=== PATIENT | male | born 1945 | race Caucasian/White ===

== ENCOUNTER → 2016-07-25 | Outpatient (CLI) | payer MEDICARE, OTHER ==
--- NOTE | 2016-07-25 07:47 | CT ---
EXAMINATION TYPE: CT sinus wo con DATE OF EXAM: 07/25/2016 7:37 AM COMPARISON: NONE HISTORY: Chronic sinusitis CT DLP: [address] of the paranasal sinuses was performed in the axial and coronal planes. Bone and soft tissue settings are submitted. The paranasal sinuses demonstrate normal aeration and development. There is mucosal thickening of the maxillary sinuses and superior anterior ethmoid air cells as well as minimally within the frontal sinus and sphenoid sinus. The osteal meatal units are obstructed on the right. Left ostiomeatal unit is patent. The nasal septum is midline. No bony destructive changes are seen within the field of view. IMPRESSION: Changes of chronic pansinusitis with obstruction of the right ostiomeatal unit.
== END | disposition home or self-care (01) ==
LOC: RADCTMAIN 07:11
PROVIDERS: ATTEND Otolaryngology
DX: J32.4 Chronic pansinusitis (principal); J98.8 Other specified respiratory disorders
CPT/HCPCS: 70486

== ENCOUNTER 2016-09-12 08:29 | Day surgery (SDC) | payer MEDICARE, OTHER ==
[2016-09-10 12:16] VITALS: BMI 25.1
[~2016-09-12 08:29] MED LIST: DEXAMETHASONE SOD PHOSPHATE 10 MG/ML 1 ML VIAL IV ONE; HYDROmorphone 1 MG/ML 1 ML SYRINGE IVP PRN; LACTATED RINGERS 1,000 ML IV SCH; ONDANSETRON 4 MG/2 ML VIAL IVP ONE; OXYMETAZOLINE 0.05% NASL SPRAY 15 ML ONE; Pre Op ABX Message 1 EACH MISC MISCELLANE ONE
[2016-09-12] MEDS ORDERED: OXYMETAZOLINE 0.05% NASL SPRAY 15 ML NASAL ONE ×4 (09:08→09:18)
[2016-09-12 09:22] VITALS: RESP 16
[2016-09-12] MEDS ORDERED: fentaNYL (PF) 50 MCG/ML 2 ML AMP ONE (10:12)
[2016-09-12] MEDS ORDERED: DEXAMETHASONE SOD PHOS (MDV) 100 MG/10 ML VIAL ONE (10:12)
[2016-09-12] MEDS ORDERED: LIDOCAINE 1% INJ 10MG/ML (20 ML MDV) ONE (10:12)
[2016-09-12] MEDS ORDERED: ePHEDrine 50 MG/ML 1 ML AMP ONE (10:12)
[2016-09-12] MEDS ORDERED: PROPOFOL 10 MG/ML 20 ML VIAL IV ONE (10:12)
[2016-09-12] MEDS ORDERED: SUCCINYLCHOLINE CHLORIDE VIAL 200 MG/10 ML VIAL IV ONE (10:12)
[2016-09-12] MEDS ORDERED: MIDAZOLAM 2 MG/2 ML VIAL ONE (10:12)
[2016-09-12] MEDS ORDERED: BACITRACIN 500 UNIT/GM OINT 28.4 GM TUBE TOPICAL ONE (10:34)
[2016-09-12] MEDS ORDERED: LIDOCAINE 1%-EPI 1:100,000 20 ML VIAL SQ ONE ×2 (10:34)
--- NOTE | 2016-09-12 11:14 | P.OP ---
Date of Procedure: 09/12/16 Preoperative Diagnosis: Deviated nasal septum Chronic sinusitis Postoperative Diagnosis: Same Procedure(s) Performed: Septoplasty Bilateral endoscopic sinus surgery including bilateral maxillary antrostomy bilateral anterior ethmoidectomy and balloon sinus plasty of the frontal and sphenoid sinuses Implants: Anesthesia: LEDYA Surgeon: Sebas Simms Estimated Blood Loss (ml): 20 Pathology: other Condition: stable Disposition: PACU Indications for Procedure: This 71-year-old white female who has difficulties with chronic nasal airway obstruction and postnasal drainage and recurrent sinusitis. Computed tomography scan shows evidence of chronic inflammation Operative Findings: Septum is deviated to the left, chronic inflammation in the maxillary and ethmoid sinuses with only minimal inflammation in the sphenoid and frontal sinuses. Description of Procedure: The patient was brought in the operative suite and placed in a supine position. The patient underwent induction of general anesthesia with oral endotracheal intubation without difficulty. The patient was prepped and draped in usual aseptic fashion with the orbits in the operating field for monitoring throughout the case and the computed tomography scan on the computer screen for review throughout the case also. 1% lidocaine with 1 100,000 epinephrine was infused submucosally both sides nasal septum as well as lateral nasal wall and anterior tips the middle turbinates bilaterally. This was left to work for 7 minutes vasoconstrictive effect. A left hemitransfixion incision was made with the mucoperichondrial mucoperiosteal flap on the left elevated. Bony cartilaginous junction was disarticulated and mucoperiosteal flap on the right was elevated. Note that there was some scarring anteriorly the septum where there was previous septoplasty. Residual bony deformity towards the left was removed with Jonatan forceps area in this corrected the nasoseptal deformities and the hemitransfixion incision was closed with a running 4-0 chromic. Full 0 to endoscopic examination is performed bilaterally. Beginning on the left the middle turbinate was medialized with a Caldwell elevator. Infundibulotomy was then performed followed by uncinectomy. Maxillary ostium was located with a ballpoint probe and max ostium was enlarged at the expense of the anterior posterior fontanelle taking care anteriorly not to injure the lacrimal bone. Maxillary sinus was evaluated a 30 and 70 endoscope with mild mucosal thickening noted. Anterior ethmoidectomy was then performed with microdebrider. Entellus light guided system was then used to perform excised sinuses explored. There was some minimal tissue removed from the ostium at both sites also. Once this was completed attention was turned to the right where the procedures were followed as they were on the left including medialization middle turbinate infundibulotomy uncinectomy maxillary antrostomy anterior ethmoidectomy and balloon sinus plasty with exploration the sphenoid and frontal sinuses. Once this completed a pledget of standard nasal pore nasal middle meatus under direct visualization and Welsh airway splints coated bacitracin ointment were placed and sutured trans-septally with a 4-0 nylon suture. The patient was then allowed to emerge from general anesthesia having tolerated procedure well was extubated in the operating suite and transferred to postop recovery area in satisfactory condition.
[2016-09-12 11:25] VITALS: TEMP 96.9
[2016-09-12 13:27] VITALS: BP 133/70; PULSE 63
== END 2016-09-12 13:55 | disposition home or self-care (01) ==
LOC: OR 08:29
PROVIDERS: ATTEND Otolaryngology
DX: J34.2 Deviated nasal septum (principal); J32.9 Chronic sinusitis, unspecified; I25.10 Atherosclerotic heart disease of native coronary artery without angina pectoris; I10 Essential (primary) hypertension; Z95.1 Presence of aortocoronary bypass graft; Z79.82 Long term (current) use of aspirin; Z79.899 Other long term (current) drug therapy; Z88.0 Allergy status to penicillin
CPT/HCPCS: 88305; 88300; 30520; 31256; 31254; 31297; 31296; C1726; J2250; J0330; J1100 ×2; J2405; J2001; J3010; J2704

== ENCOUNTER → 2017-11-14 | Day surgery (SDC) | payer MEDICARE, OTHER ==
[2017-11-06 16:00] VITALS: BMI 25.7
[~2017-11-14] MED LIST changes: +CLINDAMYCIN 900 MG in DEXTROSE 5% IN WATER 50 ML IVPB ONE; -DEXAMETHASONE SOD PHOSPHATE 10 MG/ML 1 ML VIAL IV ONE; -HYDROmorphone 1 MG/ML 1 ML SYRINGE IVP PRN; -LACTATED RINGERS 1,000 ML IV SCH; +LIDOCAINE 1% INJ 10MG/ML (20 ML MDV) SQ ONE; +MIDAZOLAM 2 MG/2 ML VIAL IV ONE; -ONDANSETRON 4 MG/2 ML VIAL IVP ONE; -OXYMETAZOLINE 0.05% NASL SPRAY 15 ML ONE; -Pre Op ABX Message 1 EACH MISC MISCELLANE ONE; +SODIUM CHLORIDE 0.9% 1,000 ML IV SCH
[2017-11-14 11:12] VITALS: BP 125/74; PULSE 53; RESP 18; TEMP 98
--- NOTE | 2017-11-14 12:10 | P.PCN ---
Preoperative Diagnosis: Loop monitor implant Primary physicians: Dr. Taylor Corporate Specialist: Dr. Lopez Indication: First-degree AV block, sick sinus syndrome, atrial flutter, atrial tachycardia Patient was brought to the EP lab in a fasting state. Written informed consent was obtained prior to the procedure. The left pectoral area was prepped and draped per protocol. Intravenous antibiotic was administered preoperatively. A subcutaneous Loop monitor was implanted successfully and the wound was closed per protocol. The device was programmed to detect significant que- arrhythmic and tachy-arrhythmic events, per protocol. Device and programming details: Programmed for AF detection and bradycardia parameters Patient underwent EP procedure under conscious sedation/moderate sedation, monitoring of the level of consciousness and physiologic parameters including but not limited to vital signs and oxygenation. Patient tolerated the procedure well without any acute complications. Start time: 1149 Stop time: 1203 14 minutes Condition: stable
== END | disposition home or self-care (01) ==
LOC: CATHEP 10:23
PROVIDERS: ATTEND Internal Medicine Clinical Cardiac Electrophysiology
DX: I44.0 Atrioventricular block, first degree (principal); I48.0 Paroxysmal atrial fibrillation; I47.1 Supraventricular tachycardia; I10 Essential (primary) hypertension; I48.3 Typical atrial flutter; I25.10 Atherosclerotic heart disease of native coronary artery without angina pectoris; Z79.899 Other long term (current) drug therapy; Z79.82 Long term (current) use of aspirin; Z88.0 Allergy status to penicillin; Z95.1 Presence of aortocoronary bypass graft; Z79.01 Long term (current) use of anticoagulants
CPT/HCPCS: 33282; J2250; J2001

== ENCOUNTER 2018-01-09 10:53 | Day surgery (SDC) | payer MEDICARE, OTHER ==
[2017-12-30 15:13] VITALS: BMI 25.1
[~2018-01-09 10:53] MED LIST changes: -CLINDAMYCIN 900 MG in DEXTROSE 5% IN WATER 50 ML IVPB ONE; +HYDROmorphone 0.5 MG/0.5 ML SYRINGE IVP PRN; -LIDOCAINE 1% INJ 10MG/ML (20 ML MDV) SQ ONE; -MIDAZOLAM 2 MG/2 ML VIAL IV ONE; +MIDAZOLAM 2 MG/2 ML VIAL IV PRN; -SODIUM CHLORIDE 0.9% 1,000 ML IV SCH
[2018-01-09] MEDS ORDERED: MIDAZOLAM 2 MG/2 ML VIAL ONE (13:36)
[2018-01-09] MEDS ORDERED: fentaNYL (PF) 50 MCG/ML 2 ML AMP ONE (13:36)
[2018-01-09] MEDS ORDERED: PROTAMINE SULFATE 10 MG/ML 5 ML VIAL IV ONE (13:36)
[2018-01-09] MEDS ORDERED: PROPOFOL 10 MG/ML 20 ML VIAL IV ONE (13:36)
[2018-01-09] MEDS ORDERED: ePHEDrine SULFATE/0.9% NACL/PF 50 MG/5 ML SYRINGE IV ONE (13:36)
[2018-01-09] MEDS ORDERED: ISOPROTERENOL 250 MCG/1.25 ML SYR IV ONE (13:36)
[2018-01-09] MEDS ORDERED: SUCCINYLCHOLINE CHLORIDE 100 MG/5 ML SYR IV ONE (13:36)
[2018-01-09] MEDS ORDERED: IV FLUID CONTINUATION 950 ML IV ONE (13:36)
[2018-01-09] MEDS ORDERED: HEPARIN SODIUM,PORCINE 5,000 UNIT/ML 1 ML VIAL ONE (13:36)
[2018-01-09] MEDS ORDERED: LIDOCAINE 1% INJ 10MG/ML (20 ML MDV) SQ ONE ×2 (14:13→14:14)
[2018-01-09] MEDS ORDERED: AMIODARONE 50 MG/ML 3 ML VIAL IV ONE (14:54)
[2018-01-09] MEDS ORDERED: HEPARIN SOD,PORK IN 0.45% NACL 25,000 UNIT in 0.45% NACL 1 500ML.BAG IV ONE (15:30)
[2018-01-09] MEDS ORDERED: IOPAMIDOL-370 100ML BTL INJ ONE (16:30)
[2018-01-09] MEDS ORDERED: ACETAMINOPHEN TAB 325 MG TAB PO PRN (16:46)
[2018-01-09] MEDS ORDERED: HYDROcodone/APAP 5-325MG 1 EACH TAB PO PRN (16:46)
[2018-01-09] MEDS ORDERED: ACETAMINOPHEN IV (For NPO) 1,000 MG in EMPTY BAG 1 BAG IVPB ONE (16:46)
--- NOTE | 2018-01-09 17:19 | P.PCN ---
Preoperative Diagnosis: Diagnosis Atrial fibrillation, symptomatic, refractory to therapy, paroxysmal Result Successful pulmonary vein isolation of all five veins using cryo-ablation Patient also had a separate right middle vein which was successfully isolated with single 3 minute cryoablation Complete entrance block in all 4 veins confirmed No evidence for phrenic nerve injury Esophageal deflection YES Procedure details Patient was brought to the EP lab in a fasting state. Written informed consent was obtained prior to the procedure. Procedure performed under general anesthesia After initial muscle relaxant use, muscle relaxants were not given thereafter in order to assess phrenic nerve during procedure Patient prepped and draped as per protocol Full cryo-set up with standard preparation of the cryoablation tools done Femoral Venous access obtained on the right and left groins Venous and arterial Sheaths placed Diagnostic catheters for the high right atrium, phrenic nerve stimulation and pacing, His bundle, RV and coronary sinus placed Intracardiac echo catheter placed Long sheath placed in the right atrium Left and right transseptal catheterization performed under intracardiac echo guidance Intravenous heparin with aCT above 300 Later, catheter positioning and balloon positioning in the left atrium, under intracardiac echo guidance Comprehensive diagnostic EP study Drug infusion Coronary sinus pacing and recording Baseline measurements Sinus cycle length 998 ms, MO interval 245 ms, QRS 97 ms QT 412 ms AH 144 ms, HV 56 ms Atrial pacing performed from the high right atrium and the coronary sinus RV pacing was performed Drug infusion given with Isuprel Atrial pacing performed Sinus recovery times at 600, 500, 400 ms were 1216, 1344 and 1006 ms.) Corrected to sinus recovery times were within normal limits AV node Wenckebach block 360 ms VA Wenckebach block greater than 600 ms AV node Wenckebach block on Isuprel from the coronary sinus poles and 60 ms Rapid atrial tachycardia induced, atrial cycle length of 211 ms Terminated with rapid atrial pacing to sinus rhythm Atrial fibrillation induced spontaneously thereafter 150 mg IV amiodarone infused Electrical cardioversion performed Transseptal catheterization performed RA pressure 8/5 LA pressure 15//8 Transseptal catheterization performed with standard sheath. The cryoablation sheath was then placed with an over the wire exchange without any acute complications. All 4 pulmonary veins were isolated in the following sequence: Left superior followed by left inferior followed by right superior followed by right inferior The cryo-ablation balloon was placed at the os of each vein 1.5 mL of IV dye was injected to confirm an occluded vein Goal during cryoablation was to achieve complete occlusion of the pulmonary vein , achieve -30C at 30 seconds and achieve -40C at 60 seconds and a time to affect of less than 60-90 seconds, . If not the balloon was repositioned to obtain this result After completion of Cryoblation with durations from 180-240 seconds, entrance block was confirmed with the Attain circular catheter in a roving fashion around the antrum of the pulmonary veins Phrenic nerve pacing was performed from the SVC, right innominate vein area and diaphragm voltage was monitored. Diaphragmatic contractions were also monitored manually for strength of contraction. Parameter goals for each cryo freeze -30C by 30 seconds -40C by 60 seconds Mediated between minus 40-55C Thaw time greater than 10 seconds Balloon visualized by intracardiac echo to ensure that the proximal one third was within the left atrium/antrum The esophagus was intubated. Esophageal Temperature monitoring with a CIRCA catheter formed. Esophageal deflection for hypothermia of the esophagus below 32C Left superior pulmonary vein 2 Cryoblation's 180 seconds and 120 seconds, complete isolation Left inferior pulmonary vein 2 cryo lesions, 120 seconds and 180 seconds, complete isolation Right superior pulmonary vein, during phrenic nerve pacing 2 cryo lesions 1 for 60 seconds, prematurely terminated and then repeated for 180 seconds with complete isolation Right middle pulmonary vein, during phrenic nerve pacing 180 seconds cryoablation lesion, time to effect 45 seconds Right inferior pulmonary vein, during phrenic nerve pacing First cryo lesion for 69 seconds, premature termination on account of esophageal cooling After esophageal deflection second cryoablation 480 seconds, no esophageal cooling observed At the end of the procedure the Achieve catheter was once again used to check for entrance block Phrenic nerve stimulation was performed to confirm diaphragmatic stimulation the end of the procedure, intact bilateral phrenic nerves Cine fluoroscopy was performed at the very end of the procedure to confirm movement of both diaphragms with pacing At the end of the procedure the patient was extubated Heparin was reversed Venous sheaths were removed and hemostasis assured Procedures performed (PVI - CRYO Ablation) Invasive hemodynamic monitoring while general anesthesia, right femoral arterial line for monitoring and sampling Comprehensive diagnostic EP study CS pacing and recording Left and right transseptal catheterization Catheter the mapping of the tachycardia (NOT 3D mapping) Intracardiac echocardiography Pulmonary vein isolation with transseptal and comprehensive EPS, 0308 Drug Infusion +[id number]
[2018-01-09] MEDS: SODIUM CHLORIDE 0.9% 1,000 ML IV SCH (18:52)
[2018-01-09] MEDS: LACTATED RINGERS 1,000 ML IV SCH (18:52)
[2018-01-09] MEDS: FAMOTIDINE 20 MG TAB PO SCH (18:53)
[2018-01-09] MEDS: COLCHICINE 0.6 MG EACH PO SCH (20:06)
[2018-01-09] MEDS: DABIGATRAN 150 MG CAP PO SCH (20:07)
[2018-01-09] MEDS ORDERED: ATORVASTATIN 80 MG TAB PO SCH (21:00)
[2018-01-09] MEDS ORDERED: ASPIRIN 81 MG PO SCH (21:00)
[2018-01-10] MEDS: SODIUM CHLORIDE 0.9% 1,000 ML IV SCH (05:46)
[2018-01-10] MEDS: LACTATED RINGERS 1,000 ML IV SCH (05:47)
[2018-01-10] MEDS ORDERED: LEVOTHYROXINE 50 MCG TAB PO SCH (06:30)
[2018-01-10 08:06] VITALS: RESP 18
[2018-01-10 08:07] LABS: Anion Gap 9 mmol/L; Blood Urea Nitrogen 15 mg/dL (9-20); Carbon Dioxide 27 mmol/L (22-30); Chloride 104 mmol/L (98-107); Glucose 102 mg/dL (74-99); Potassium 4.3 mmol/L (3.5-5.1); Sodium 140 mmol/L (137-145)
--- NOTE | 2018-01-10 08:18 | P.DS ---
Providers Attending physician: Alexsander Bowers Primary care physician: [facility] Course: Patient is doing well. Denies any sore throat chest pain and breathing difficulty palpitations dizziness lightheadedness. Was of healed well that is no hematoma there is no bruising. On examination he is afebrile 98.4F pulse rate in the 60s blood pressure 108/ 60 mmHg Breath sounds are clear no rhonchi no crackles Heart sounds S1 and S2 are soft there's a soft systolic murmur Abdomen soft minimal tenderness over the groins Impression Paroxysmal atrial fibrillation, symptomatic status post cryoablation of all 5 pulmonary veins including right middle vein Esophageal deflection needed for right inferior pulmonary vein Prolonged [place] interval at baseline precluding the use of antiarrhythmic drugs Atrial flutter status post successful ablation many years back no recurrence [place] atrial tachycardia status post ablation many years back, no recurrence Dyslipidemia Coronary artery disease status post coronary artery bypass grafting Plan Continue Pradaxa, continue all other medications as before without any changes Colchicine for 3 days Follow-up with Dr. Lopez in 1-2 weeks Discharge home if he is stable by 4 PM today Plan - Discharge Summary Discharge Rx Participant: No New Discharge Prescriptions: New Colchicine [Colcrys] 0.6 mg PO BID #10 tablet No Action Dabigatran [Pradaxa] 150 mg PO BID Fexofenadine HCl [Prisca Allergy] 180 mg PO DAILY PRN PRN Reason: allergies Allopurinol [Zyloprim] 300 mg PO QAM Rosuvastatin [Crestor] 40 mg PO HS Lisinopril [Zestril] 5 mg PO MOWEFR Levothyroxine Sodium [Synthroid] 50 mcg PO QAM Aspirin [Adult Low Dose Aspirin EC] 81 mg PO HS Discharge Medication List Allopurinol [Zyloprim] 300 mg PO QAM 09/10/16 [History] Aspirin [Adult Low Dose Aspirin EC] 81 mg PO HS 09/10/16 [History] Dabigatran [Pradaxa] 150 mg PO BID 09/10/16 [History] Fexofenadine HCl [Prisca Allergy] 180 mg PO DAILY PRN 09/10/16 [History] Levothyroxine Sodium [Synthroid] 50 mcg PO QAM 09/10/16 [History] Lisinopril [Zestril] 5 mg PO MOWEFR 06/12/17 [History] Rosuvastatin [Crestor] 40 mg PO HS 09/10/16 [History] Colchicine [Colcrys] 0.6 mg PO BID #10 tablet 01/09/18 [Rx] Follow up Appointment(s)/Referral(s): Alexsander Bowers MD [STAFF PHYSICIAN] - 2 Weeks (Follow-up with Dr. Lopez/ Yissel in 1-2 weeks) Activity/Diet/Wound Care/Special Instructions: Post EP study - Ablation instructions 1. Keep access sites dry for 2 days. 2. No heavy lifting or straining for 2 days. 3. Avoid bending the hips repeatedly for 2 days. 4. You may go up and down stairs slowly Call if the following is noted 1. Bleeding, increasing swelling or pain at the access sites. 2. Increasing chest discomfort, especially upon taking a deep breath. 3. Increasing shortness of breath, at rest or with exertion. 4. Undue cough / phlegm 5. Difficulty or pain while swallowing. 6. Pain or change in color in the extremities. 7. Fever, chills, rigors. 8. Increasing headache or neurologic symptoms. 9. Dizziness, fainting, palpitations Colchicine 0.6 mg by mouth twice a day for 5 days maximum Ranitidine generic, [id number] 150 mg twice daily for one week Continue all other medications without any changes. Do not stop Pradaxa Discharge Disposition: HOME SELF-CARE
[2018-01-10] MEDS: DABIGATRAN 150 MG CAP PO SCH (08:47)
[2018-01-10] MEDS: COLCHICINE 0.6 MG EACH PO SCH (08:47)
[2018-01-10] MEDS: FAMOTIDINE 20 MG TAB PO SCH (08:47)
[2018-01-10] MEDS ORDERED: ALLOPURINOL 300 MG TAB PO SCH (09:00)
[2018-01-10] MEDS ORDERED: LISINOPRIL 5 MG TAB PO SCH (09:00)
[2018-01-10 11:51] VITALS: BP 105/68; PULSE 64; TEMP 98.2
== END 2018-01-10 16:00 | disposition home or self-care (01) ==
LOC: CATHEP 10:53 → 3OBS 16:58 → CATHEP 01-10 16:00
PROVIDERS: ATTEND Internal Medicine Clinical Cardiac Electrophysiology
DX: I48.0 Paroxysmal atrial fibrillation (principal); I49.5 Sick sinus syndrome; I44.0 Atrioventricular block, first degree; I25.10 Atherosclerotic heart disease of native coronary artery without angina pectoris; I10 Essential (primary) hypertension; E78.5 Hyperlipidemia, unspecified; Z95.1 Presence of aortocoronary bypass graft; Z79.02 Long term (current) use of antithrombotics/antiplatelets; Z79.82 Long term (current) use of aspirin; Z79.899 Other long term (current) drug therapy; Z88.0 Allergy status to penicillin
CPT/HCPCS: 85347; 93623; 93662; 93609; 93656; 80048; C1769 ×4; C1894 ×3; C1730 ×2; C1759; C1893; C1733; C1766; J0282; J2001; J1644; Q9967

== ENCOUNTER → 2018-04-03 | Outpatient (CLI) | payer MEDICARE, OTHER ==
--- NOTE | 2018-04-03 12:19 | CONS ---
CONSULTATION DATE OF SERVICE: 04/03/2018 A 72-year-old gentleman had been evaluated in the sleep center for possible obstructive sleep apnea-hypopnea syndrome. HISTORY OF PRESENT ILLNESS/SLEEP WAKE EVALUATION: Patient usual sleep schedule from 10 p.m. to 7:15 a.m. He does not have any problems with falling asleep. No TV in bedroom. He sleeps with his with loud snoring and awakenings from sleep 2 times with nocturia. No history of hypnagogic hallucinations, sleep paralysis, or cataplexy. [place] Sleepiness Scale is 4. PAST MEDICAL HISTORY: Positive for recent atrial fibrillation with status post cardiac ablation procedure, hypertension, coronary artery disease, prostate CA, hyperlipidemia, hypothyroidism, gout. PAST SURGICAL HISTORY: Coronary artery bypass graft, cardiac ablation for atrial fibrillation, radical prostatectomy, instillation or insertion artificial urinary sphincter. MEDICATIONS: Allopurinol, Synthroid, Pradaxa, Crestor, lisinopril, aspirin. SOCIAL HISTORY: Negative for smoking. Alcohol consumption up to the 3 drinks per week. FAMILY HISTORY: Snoring family, hypertension, heart problems, arthritis, cancer, ulcers. REVIEW OF SYSTEMS: Awakenings from sleep, loud snoring. PHYSICAL EXAMINATION: During physical exam, a gentleman without distress. VITAL SIGNS: BP 156/65, HR 63, RR 14, height 5 feet 10-1/2 inches, weight 184.0, body mass index 26.8, temperature 97.7, oxygen saturation at room air 99%. HEENT: PERRLA, EOMI. Oropharynx extremely low position of soft palate. Mallampati IV. NECK: 16 inches in circumference. LUNGS: Clear to percussion and to auscultation. Good air exchange. No wheezing or rhonchi. HEART: S1, S2 regular. No murmurs, gallops, or rubs. ABDOMEN: Soft and nontender. Bowel sounds are present. No organomegaly appreciated. EXTREMITIES: No clubbing or cyanosis. MANAGER INSURANCE: Awake, alert, and oriented X3. Cranial nerves 2 to 7 intact. There is no fasciculation or atrophy. noted. No focal deficits observed. IMPRESSION: 1. Loud snoring, awakenings from sleep with nocturia, extremely low position of soft palate, obstructive sleep apnea-hypopnea syndrome. 2. Hypertension. 3. History of atrial fibrillation, status post cardiac ablation in December of 2017. 4. Coronary artery disease, status post CABG in 2007. 5. Gout. 6. Hyperlipidemia. 7. Hypothyroidism. 8. Status post sinus surgery and surgery for nasal septum deviation in 2016. 9. History of prostate cancer, status post radical prostatectomy and artificial urinary sphincter insertion. PLAN: 1. Polysomnography for evaluation of patient's breathing during sleep. 2. CPAP/BiPAP titration if sleep study confirms obstructive sleep apnea-hypopnea syndrome. 3. Preferable position during sleep on the side. 4. No driving if patient feels any sleepiness. 5. I will see patient for follow up visit to explain results of testing and following plan. Thank you very much for referring this patient for consultation. Sincerely, Osvaldo Pascual MD, PhD, FAASM Diplomat of [employer] [facility] [place] MMODL / IJN: [id number] /
== END | disposition home or self-care (01) ==
LOC: SLEEP 09:48
PROVIDERS: ATTEND Internal Medicine
DX: G47.33 Obstructive sleep apnea (adult) (pediatric) (principal); R35.1 Nocturia; I48.91 Unspecified atrial fibrillation; I10 Essential (primary) hypertension; I25.10 Atherosclerotic heart disease of native coronary artery without angina pectoris; E78.5 Hyperlipidemia, unspecified; E03.9 Hypothyroidism, unspecified; M10.9 Gout, unspecified; Z95.1 Presence of aortocoronary bypass graft; Z90.79 Acquired absence of other genital organ(s); Z79.82 Long term (current) use of aspirin; Z79.899 Other long term (current) drug therapy; Z85.46 Personal history of malignant neoplasm of prostate; Z98.890 Other specified postprocedural states; Z79.01 Long term (current) use of anticoagulants
CPT/HCPCS: 99211

== ENCOUNTER → 2018-07-10 | Outpatient (CLI) | payer MEDICARE, OTHER ==
--- NOTE | 2018-07-10 16:16 | PN ---
PROGRESS NOTE . DATE OF SERVICE: 07/10/2018. 73-year-old gentleman has been followed in Sleep Center for treatment of obstructive sleep apnea-hypopnea syndrome. Recently patient has been diagnosed with mild obstructive sleep apnea-hypopnea syndrome; apnea-hypopnea index 6.4 with oxygen desaturation to 85.5%. Subsequently, was started on treatment with CPAP because he has history of atrial fibrillation episodes, episodes of cardiac arrhythmias and hypertension and coronary artery disease. Patient was able to use CPAP equipment every night, had some discomfort related to the nasal pillow style of the mask, which is nasal pillow mask. I checked reading from his machine and his CPAP unit, range of the pressure 5-10 cm of water. Most of the time pressure is 9.1 cm of water. Leak according to the reading from the machine 5 L/minute, which is normal range. Apnea-hypopnea index 2.0. According to the patient, monitoring of his heart for the time when he is using CPAP equipment showed no episodes of cardiac arrhythmia comparing with the monitoring before. Patient is using CPAP equipment 30/30 nights more than 4 hours with average usage 8.9 hours. [place] Sleepiness Scale today is 0. MEDICATIONS: Allopurinol, Synthroid, Pradaxa, Crestor, lisinopril. PHYSICAL EXAM: gentleman without distress. BP 119/58, HR 76, RR 16, weight 188, temp 97.5, oxygen saturation at room air 98%. OROPHARYNX: Low position of soft palate. Neck Supple, no JVD. Thyroid is not palpable. LUNGS Clear to percussion and to auscultation. Good air exchange. No wheezing or rhonchi. HEART S1, S2 regular. No murmurs, gallops, or rubs. ABDOMEN Soft and nontender. Bowel sounds are present. No organomegaly appreciated. EXTREMITIES No clubbing or cyanosis. GENERAL MERCHANDISE SALESPERSON Awake, alert, and oriented X3. Cranial nerves 2 to 7 intact. There is no fasciculation or atrophy. noted. No focal deficits observed. IMPRESSION: 1. Obstructive sleep apnea-hypopnea syndrome. Patient demonstrated 100% compliance with treatment benefitting from treatment. 2. History of cardiac arrhythmia including atrial fibrillation, status post cardiac ablation. 3. Coronary artery disease. 4. Hypertension. 5. Hyperlipidemia. 6. Gout. 7. Hypothyroidism. 8. Status post coronary artery bypass graft. 9. Status post sinus surgery and surgery for nasal septum deviation in 2017. 10.History of prostate carcinoma status post radical prostatectomy and artificial urinary sphincter insertion. PLAN: 1. Patient will continue to use CPAP equipment every night for the whole night with the same range of the pressure. 2. We will consider to fit patient with a different style of nasal pillow mask. 3. We will maintain all necessary prescription for the nasal pillow mask, tube and filters. 4. Watching weight. Thank you very much for allowing me to participate in management of your patient. Sincerely, Osvaldo Pascual MD, PhD, FAASM Diplomat of [place] [employer] [place] [employer] [facility] [place] MMODL / IJN: [id number] /
== END | disposition home or self-care (01) ==
LOC: SLEEP 13:26
PROVIDERS: ATTEND Internal Medicine
DX: G47.33 Obstructive sleep apnea (adult) (pediatric) (principal); I25.10 Atherosclerotic heart disease of native coronary artery without angina pectoris; I10 Essential (primary) hypertension; E78.5 Hyperlipidemia, unspecified; M10.9 Gout, unspecified; E03.9 Hypothyroidism, unspecified; Z86.79 Personal history of other diseases of the circulatory system; Z85.46 Personal history of malignant neoplasm of prostate; Z90.79 Acquired absence of other genital organ(s); Z96.0 Presence of urogenital implants; Z95.1 Presence of aortocoronary bypass graft; Z99.89 Dependence on other enabling machines and devices; Z98.890 Other specified postprocedural states; Z79.899 Other long term (current) drug therapy

== ENCOUNTER → 2020-01-21 | Outpatient (CLI) | payer MEDICARE ==
--- NOTE | 2020-01-21 15:05 | SFUN ---
SLEEP CENTER FOLLOW UP NOTE DATE OF SERVICE: 01/21/2020 A 74-year-old gentleman who has been followed in the Sleep Center for treatment of a mild obstructive sleep apnea-hypopnea syndrome with the patient's history of atrial fibrillation. Patient continues to use his CPAP equipment. No episodes of atrial fibrillation since he was started on treatment with CPAP. [place] Sleepiness Scale today is 2. I checked CPAP unit. Range of the pressure 5-10, average pressure 9 cm of water. Usage is 25/30 nights, 15/30 nights more than 4 hours with average usage 4.6 hours per night. Leak is 0 L/minute. Apnea-hypopnea index only 0.4. MEDICATIONS: Prisca 180 mg once a day, Allopurinol 300 mg once a day, Synthroid 50 mcg once a day, 150 mg twice a day, Crestor 40 mg once a day, lisinopril 5 mg once a day, HCT 10 mg once a day, aspirin 81 mg once a day, regular strains once a day, Nitroglycerin 0.4 mg as needed. PHYSICAL EXAM: Patient in no distress, BP 138/62, HR 66, RR 16, height 5, 10-1/2 inches, weight 190, BMI 26.8, temperature 97.9, oxygen saturation at room air 97%. OROPHARYNX: Low position of soft palate. NECK: Supple, no JVD. Thyroid is not palpable. LUNGS: Clear to percussion and to auscultation. Good air exchange. No wheezing or rhonchi. HEART: S1, S2 regular. No murmurs, gallops, or rubs. ABDOMEN: Soft and nontender. Bowel sounds are present. No organomegaly appreciated. EXTREMITIES: No clubbing or cyanosis. HOUSEHOLD ASSISTANT: Awake, alert, and oriented X3. Cranial nerves 2 to 7 intact. There is no fasciculation or atrophy. noted. No focal deficits observed. IMPRESSION: 1. Obstructive sleep apnea-hypopnea syndrome. Patient demonstrated good compliance with treatment benefitting from treatment. 2. History of cardiac arrhythmia, including atrial fibrillation, status post cardiac ablation. 3. Coronary artery disease, status post coronary artery bypass grafting. 4. Hypertension. 5. Hyperlipidemia. 6. Gout. 7. Hypothyroidism. 8. Status post sinus surgery and surgery for nasal septum deviation in 2017.: 9. History of prostate carcinoma, status post radical prostatectomy and artificial urinary sphincter insertion. PLAN: 1. Patient will continue to use PAP equipment every night for the whole night. 2. Sleep hygiene with regular time in bed for at least 7-1/2 to 8 hours. 3. Precautions related to driving. No driving if feeling sleepiness. 4. I will maintain all necessary prescription for PAP supplies including mask, tube, filters. 5. Watching weight. 6. No driving if feeling sleepiness. 7. Follow-up visit in 6 months or earlier if patient has any problems. Thank you very much for allowing me to participate in the management of your patient. Sincerely, Osvaldo Pascual MD, PhD, FAASM Diplomat of [place] [employer] [facility] [place] MMODL / IJN: [id number] /
== END | disposition home or self-care (01) ==
LOC: SLEEP 10:06
PROVIDERS: ATTEND Internal Medicine
DX: G47.33 Obstructive sleep apnea (adult) (pediatric) (principal); Z86.79 Personal history of other diseases of the circulatory system; I25.10 Atherosclerotic heart disease of native coronary artery without angina pectoris; I10 Essential (primary) hypertension; E78.5 Hyperlipidemia, unspecified; M10.9 Gout, unspecified; E03.9 Hypothyroidism, unspecified; Z98.890 Other specified postprocedural states; Z85.46 Personal history of malignant neoplasm of prostate; Z99.89 Dependence on other enabling machines and devices

== ENCOUNTER → 2020-08-25 | Outpatient (CLI) | payer MEDICARE ==
--- NOTE | 2020-08-25 14:30 | SFUN ---
SLEEP CENTER FOLLOW UP NOTE DATE OF SERVICE: 08/25/2020 This 75-year-old gentleman who has been followed in Sleep Center for treatment of obstructive sleep apnea-hypopnea syndrome. The patient continues to use his CPAP equipment every night. He did not use it for several days when he went to [place] because his son was in the hospital there, but otherwise again he is using CPAP equipment every night for the whole night. Recently he received new CPAP supplies after I signed the prescription for all necessary supplies about one month ago. Hertel Sleepiness Scale is 2 which is absolutely perfect. I checked his CPAP unit. Range of the pressure 5-10, average pressure 9.3. The usage is 21 out of 30 nights. Average 5.4 hours per night. Leak is only 0 L/minute, apnea- hypopnea index is 0.5, which is absolutely perfect. MEDICATIONS: Allopurinol 300 mg once a day, levothyroxine 50 mcg once a day, Pradaxa 150 mg twice a day, rosuvastatin 40 mg once a day, lisinopril 5 mg once a day and 3 times a week in the evening, 10 mg once a day, aspirin 81 mg once a day, Prisca 180 mg once a day, Relieva eyedrops. PHYSICAL EXAMINATION: GENERAL: Patient in no distress. VITAL SIGNS: BP 125/71, HR 71, RR 12, height 5 feet 11 inches, weight 192.8, temperature 96.8, oxygen saturation at room air 98%. HEENT: PERRLA, EOMI. Oropharynx low position of soft palate NECK: Supple, no JVD. Thyroid is not palpable. LUNGS: Clear to percussion and to auscultation. Good air exchange. No wheezing or rhonchi. HEART: S1, S2 regular. No murmurs, gallops, or rubs. ABDOMEN: Soft and nontender. Bowel sounds are present. No organomegaly appreciated. EXTREMITIES: No clubbing or cyanosis. BLACK STUDIES PROFESSOR: Awake, alert, and oriented X3. Cranial nerves 2 to 7 intact. There is no fasciculation or atrophy. noted. No focal deficits observed. IMPRESSION: 1. Obstructive sleep apnea-hypopnea syndrome. Patient demonstrated good compliance with treatment, benefitting from treatment. 2. Coronary artery disease, status post coronary artery bypass grafting. 3. Hypertension. 4. History of cardiac arrhythmia including atrial fibrillation, status post cardiac ablation. 5. Hyperlipidemia. 6. Gout. 7. Hypothyroidism. 8. History of prostate carcinoma, status post radical prostatectomy and artificial urinary sphincter insertion. 9. Status post nasal surgery for sinus problems and for nasal septum deviation 2016. PLAN: 1. Patient will continue to use PAP equipment every night for the whole night. 2. Sleep hygiene with regular time in bed for at least 7-1/2 to 8 hours. 3. Precautions related to driving. No driving if feeling sleepiness. 4. I will maintain all necessary prescription for PAP supplies including mask, tube, filters. 5. Watching weight. 6. Follow-up visit in 6 months or earlier if patient has any problems. Thank you very much for allowing me to participate in management of your patient. Sincerely, Osvaldo Pascual MD, PhD, FAASM Diplomat of [place] [place] [employer] Executive Assistant To President of [facility] [place] MMODL / ZORAIDAN: [phone] /
== END ==
LOC: SLEEP 10:08
PROVIDERS: ATTEND Internal Medicine
DX: G47.33 Obstructive sleep apnea (adult) (pediatric) (principal); I25.10 Atherosclerotic heart disease of native coronary artery without angina pectoris; I10 Essential (primary) hypertension; E78.5 Hyperlipidemia, unspecified; I48.91 Unspecified atrial fibrillation; M10.9 Gout, unspecified; E03.9 Hypothyroidism, unspecified; Z85.46 Personal history of malignant neoplasm of prostate; Z98.890 Other specified postprocedural states; Z90.79 Acquired absence of other genital organ(s); Z96.89 Presence of other specified functional implants; Z79.890 Hormone replacement therapy; Z79.82 Long term (current) use of aspirin; Z79.899 Other long term (current) drug therapy; Z88.0 Allergy status to penicillin; Z91.011 Allergy to milk products; Z91.018 Allergy to other foods

== ENCOUNTER 2021-10-10 12:32 | Day surgery (SDC) | payer MEDICARE ==
[~2021-10-10 12:32] MED LIST changes: -HYDROmorphone 0.5 MG/0.5 ML SYRINGE IVP PRN; -MIDAZOLAM 2 MG/2 ML VIAL IV PRN; +SODIUM CHLORIDE 0.9% 1,000 ML IV SCH
[2021-10-10] MEDS ORDERED: SODIUM CHLORIDE 0.9% 500 ML 500 ML IV ONE (12:56)
[2021-10-10 13:16] LABS: Basophils # (A) 0.1 k/uL (0-0.2); Basophils % (A) 1 %; Eosinophils # (A) 0.1 k/uL (0-0.7); Eosinophils % (A) 2 %; HCT 42.7 % (39.0-53.0); HGB 14.5 gm/dL (13.0-17.5); Lymphocytes # (A) 2.6 k/uL (1.0-4.8); Lymphocytes % (A) 42 %; MCH 32.6 pg (25.0-35.0); MCHC 33.9 g/dL (31.0-37.0); MCV 96.3 fL (80.0-100.0); Mean Platelet Volume 8.5; Monocytes # (A) 0.4 k/uL (0-1.0); Monocytes % (A) 6 %; Neutrophils # (A) 2.9 k/uL (1.3-7.7); Neutrophils % (A) 47 %; Platelet Count 167 k/uL (150-450); RBC 4.44 m/uL (4.30-5.90); WBC 6.2 k/uL (3.8-10.6)
[2021-10-10 13:25] LABS: African American GFR (CKD) >90 (>60 ml/min/1.73 sqM); Anion Gap 8 mmol/L; Blood Urea Nitrogen 18 mg/dL (9-20); Calcium 9.2 mg/dL (8.4-10.2); Carbon Dioxide 23 mmol/L (22-30); Chloride 107 mmol/L (98-107); Glucose 94 mg/dL (74-99); Non-African American GFR(CKD) 81 (>60 ml/min/1.73 sqM); Potassium 4.1 mmol/L (3.5-5.1); Sodium 138 mmol/L (137-145)
[2021-10-10 15:33] VITALS: BP 143/77; PULSE 67; RESP 16; TEMP 98.1
[2021-10-10] MEDS ORDERED: LIDOCAINE 1% INJ 10MG/ML (30 ML VIAL-PF) SQ ONE ×2 (15:55→15:56)
--- NOTE | 2021-10-10 16:50 | P.EPPROC ---
- EP Procedure Note Electrophysiology Procedure Note: Procedure: Loop explant under sedation and local anesthesia. Diagnosis: Loop monitor at NABIL Patient was brought to the EP lab in a fasting state. Written informed consent was obtained prior to the procedure. The subcutaneous device was successfully explanted under local anesthesia. Preoperative antibiotics were administered. The wound was closed in layers and dressed per protocol. Result: Successful loop monitor explantation. Loop monitor implant Primary physicians: Production Worker: Dr. 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 Written informed consent was obtained prior to the procedure. The left pectoral area was prepped and draped per protocol. Intravenous antibiotic was administered preoperatively. A subcutaneous Loop monitor was implanted successfully and the wound was closed per protocol. The device was programmed to detect significant que- arrhythmic and tachy-arrhythmic events, per protocol. Device and programming details: Bradycardia detection programming, A. fib detection protocol Procedures performed under local anesthesia. No sedation given
== END 2021-10-10 16:59 | disposition home or self-care (01) ==
LOC: CATHEP 12:32
PROVIDERS: ATTEND Internal Medicine Clinical Cardiac Electrophysiology
DX: Z45.09 Encounter for adjustment and management of other cardiac device (principal); I25.10 Atherosclerotic heart disease of native coronary artery without angina pectoris; I10 Essential (primary) hypertension; Z95.1 Presence of aortocoronary bypass graft; I44.0 Atrioventricular block, first degree; Z20.822 Contact with and (suspected) exposure to COVID-19; G47.33 Obstructive sleep apnea (adult) (pediatric); I48.0 Paroxysmal atrial fibrillation; E78.5 Hyperlipidemia, unspecified; Z79.82 Long term (current) use of aspirin; Z79.890 Hormone replacement therapy; Z79.899 Other long term (current) drug therapy; Z88.0 Allergy status to penicillin
CPT/HCPCS: 33285; 33286; 80048; 85025; 87635; J0690; J2001

== ENCOUNTER 2023-05-24 13:09 | Emergency (ER) | payer MEDICARE ==
[2023-05-24 13:40] VITALS: RESP 18
[2023-05-24 15:18] LABS: Appearance,Urine Clear (Clear); Bilirubin,Urine Negative (Negative); Blood,Urine Trace (Negative); Color,Urine Light Yellow; Glucose,Urine (UA) Negative (Negative); Hyaline Casts,Urine 1 /lpf (0-2); Ketones,Urine 1+ (Negative); Leukocyte Esterase,Urine Negative (Negative); Mucus,Urine Rare /hpf; Nitrite,Urine Negative (Negative); PH, Urine 5.5 (5.0-8.0); Protein,Urine Trace (Negative); RBC,Urine 2 /hpf (0-5); Specific Gravity,Urine 1.015 (1.001-1.035); Urobilinogen,Urine <2.0 mg/dL (<2.0); WBC,Urine 1 /hpf (0-5)
[2023-05-24 15:21] LABS: Basophils % (A) 0 %; Eosinophils % (A) 0 %; HGB 15.9 gm/dL (13.0-17.5); Lymphocytes # (A) 1.2 k/uL (1.0-4.8); Lymphocytes % (A) 11 %; MCHC 32.5 g/dL (31.0-37.0); MCV 98.6 fL (80.0-100.0); Mean Platelet Volume 8.4; Monocytes # (A) 0.3 k/uL (0-1.0); Monocytes % (A) 3 %; Neutrophils # (A) 9.5 k/uL (1.3-7.7); Neutrophils % (A) 85 %; Platelet Count 164 k/uL (150-450); RBC 4.97 m/uL (4.30-5.90); RDW 12.7 % (11.5-15.5); WBC 11.2 k/uL (3.8-10.6)
[2023-05-24 15:30] LABS: INR 1.2 (<1.2); Partial Thromboplastin Time 35.8 sec (22.0-30.0); Prothrombin Time 12.7 sec (10.0-12.5)
[2023-05-24 15:31] LABS: ALT 34 U/L (4-49); AST 40 U/L (17-59); African American GFR (CKD) >90 (>60 ml/min/1.73 sqM); Alkaline Phosphatase 57 U/L (38-126); Anion Gap 13 mmol/L; Blood Urea Nitrogen 20 mg/dL (9-20); Calcium 9.9 mg/dL (8.4-10.2); Carbon Dioxide 25 mmol/L (22-30); Chloride 103 mmol/L (98-107); Glucose 105 mg/dL (74-99); Lipase 48 U/L (23-300); Magnesium 1.9 mg/dL (1.6-2.3); Non-African American GFR(CKD) 82 (>60 ml/min/1.73 sqM); Potassium 4.5 mmol/L (3.5-5.1); Sodium 141 mmol/L (137-145); Total Bilirubin 1.1 mg/dL (0.2-1.3); Total Protein 7.9 g/dL (6.3-8.2)
[2023-05-24] MEDS: SODIUM CHLORIDE 0.9% 1,000 ML IV STA (15:38)
[2023-05-24 15:39] LABS: NT-Pro-B-Type Natriuretic Pept 65 pg/mL
--- NOTE | 2023-05-24 15:40 | CT ---
CTA chest, abdomen and pelvis. HISTORY: Chest, back and abdominal pain. COMPARISON: None. TECHNIQUE: Axial images were obtained chest, abdomen and pelvis. The CTA protocol. Nonionic contrast was provided. Coronal and sagittal reconstructions were generated and reviewed. 3-D postprocessing was performed. FINDINGS: CTA chest: There is a 7.6 mm calcified granuloma in the right lung base but there are no suspicious lung masses or nodules. There is no airspace consolidation. There is no abnormal interstitial density. There is no pleural effusion, pleural thickening or pneumothorax. There is moderate cardiomegaly. The great vessels and chest are normal and there is no aneurysm. There is no mediastinal, hilar or ax illary adenopathy. No focal osseous lesions are seen. There is a small hiatal hernia. CTA abdomen and pelvis: There is fatty infiltration liver. The gallbladder is normal and no gallstones or biliary ductal dilatation. There is no focal mass or organomegaly involving the liver, pancreas, spleen or adrenal glands. There are scattered diana-like calcifications in both kidneys. There is a 5 -6 mm nonobstructing left renal calculus. There is no solid renal mass or hydronephrosis. There is atherosclerotic calcification of abdominal aorta but no evidence of aneurysm. There is no re troperitoneal adenopathy or hemorrhage. The bowel loops are normal in caliber and there is no dilatation or obstruction. There is no ventilat ory change in the bowel wall or mesentery. There is no free intraperitoneal air or fluid. There is diverticulosis of the colon but no acute diverticulitis. No pelvic mass, free fluid, abscess or adenopathy. There is surgical absence of the prostate gland. No focal osseous lesions are seen. IMPRESSION: 1. No evidence of aneurysm or dissection of the thoracic or abdominal aorta. 2. 5 to 6 mm nonobstructing left renal calculus and a few scattered diana-like calcifications in both kidneys. 3. Fatty liver 4. Small hiatal hernia 5. No acute cardiopulmonary disease. Moderate cardiomegaly 6. Colonic diverticulosis without evidence of diverticulitis. No acute changes within the abdomen or pelvis.
--- NOTE | 2023-05-24 17:39 | ED ---
General Adult HPI - General Chief complaint: Chest Pain Stated complaint: Chest/Back Pain Time Seen by Provider: 05/24/23 14:00 Source: patient, family, RN notes reviewed, old records reviewed Mode of arrival: wheelchair - History of Present Illness Initial comments: Patient is an 78-year-old male who presents emergency department complaining of chest pain as well as abdominal pain. Started somewhat today. Had chest pain in the lower center of his chest that is basically resolved at this time. Primary complaint is bilateral lower back pain with flank pain that felt like kidney stones in the past that is also basically resolved at this time. Does have a history of having a loop recorder as well as cardiac disease. Has a history of quadruple bypass surgery. He is resting comfortably at this time. Denies any fevers, chills, shortness of breath, cough. Presents for further evaluation. - Related Data Home Medications Medication Instructions Recorded Confirmed Aspirin [Adult Low Dose Aspirin EC] 81 mg PO DAILY 09/10/16 10/10/21 Dabigatran [Pradaxa] 150 mg PO BID 09/10/16 10/10/21 Fexofenadine HCl [Prisca Allergy] 180 mg PO DAILY PRN 09/10/16 10/10/21 Levothyroxine Sodium [Synthroid] 50 mcg PO QAM 09/10/16 10/10/21 Rosuvastatin [Crestor] 40 mg PO HS 09/10/16 10/10/21 allopurinoL [Zyloprim] 300 mg PO QAM 09/10/16 10/10/21 lisinopriL [Zestril] 2.5 mg PO DAILY 09/10/16 10/10/21 Colchicine [Colcrys] 0.6 mg PO DAILY 10/09/21 10/10/21 Ezetimibe [Zetia] 10 mg PO DAILY 10/09/21 10/10/21 Allergies Allergy/AdvReac Type Severity Reaction Status Date / Time cephalexin [From Keflex] Allergy Unknown Verified 05/24/23 13:38 lactose Allergy Unknown Verified 05/24/23 13:38 Penicillins Allergy Unknown Verified 05/24/23 13:38 Childhood Milk Containing Products AdvReac Mild Unknown Verified 05/24/23 13:38 (Dairy) [Dairy] apple AdvReac Diarrhea Verified 05/24/23 13:38 Review of Systems ROS Statement: Those systems with pertinent positive or pertinent negative responses have been documented in the HPI. Review of Systems: CONST: Denies fever EYES: Denies blurry vision ENT: Denies nasal congestion C/V: Denies Chest pain RESP: Denies shortness of breath GI: Denies abdominal pain : Denies dysuria SKIN: Denies rash. MSK: Denies joint pain. NEURO: Denies headache ROS Other: All systems not noted in ROS Statement are negative. Past Medical History Past Medical History: Cancer, Deep Vein Thrombosis (DVT), Hyperlipidemia, Hypertension, Osteoarthritis (OA), Thyroid Disorder Additional Past Medical History / Comment(s): See Dr Bowers's H&P,Hx kidney stones, prostate and skin cancer, gout History of Any Multi-Drug Resistant Organisms: None Reported Past Surgical History: Appendectomy, Coronary Bypass/CABG, Hernia Repair, Prostate Surgery Additional Past Surgical History / Comment(s): Quadruple bypass surgery,"2009 other heart surgery on the sinus part of heart", left elbow surgery, surgery for deviated septum,prostatectomy,gonzalo inguinal hernia repairs. sinus surgery Past Anesthesia/Blood Transfusion Reactions: No Reported Reaction, Motion Sickness Additional Past Anesthesia/Blood Transfusion Reaction / Comment(s): can not have indwelling urinary catheter due to artificial sphincter (needs urologist) or someone experienced with the artificial sphincter Type of Cardiac Device: Loop Device Placement Date:: 10/2017 Past Psychological History: No Psychological Hx Reported Smoking Status: Never smoker Past Alcohol Use History: None Reported Past Drug Use History: None Reported - Past Family History Father Family Medical History: Cancer Additional Family Medical History / Comment(s): Colon Cancer Mother Family Medical History: Hypertension Brother(s) Family Medical History: Cancer, Deep Vein Thrombosis (DVT) Additional Family Medical History / Comment(s): Colon Cancer, bladder General Exam - General Exam Comments Initial Comments: General: Appears in no acute distress. HEAD: Normal with no signs of head trauma. EYES: PERRLA, EOMI, conjunctiva normal, no discharge. ENT: Hearing grossly intact, normal oropharynx. RESPIRATORY: Clear breath sounds bilaterally. No wheezes, rales, or rhonchi. C/V: Regular rate and rhythm. S1 and S2 auscultated, no edema, peripheral pulses 2+ and intact throughout ABD: Abd is soft, nontender, nondistended EXT: Normal range of motion, no obvious deformity SKIN: No rashes or lesions observed on exposed skin. NEURO: Alert and oriented x 4. Cranial nerves II-XII intact. No focal sensory or strength deficits. Course Vital Signs 05/24/23 05/24/23 05/24/23 13:35 13:57 15:38 Temperature 98.1 F 97.5 F L Pulse Rate 64 65 61 Respiratory 18 18 18 Rate Blood Pressure 157/70 141/79 122/69 O2 Sat by Pulse 99 100 94 L Oximetry 05/24/23 05/24/23 17:21 17:59 Temperature 97.6 F Pulse Rate 58 L 57 L Respiratory 18 18 Rate Blood Pressure 115/73 117/76 O2 Sat by Pulse 97 95 Oximetry Medical Decision Making - Medical Decision Making Was pt. sent in by a medical professional or institution (, PA, ADVERTISING TRAFFIC MANAGER, urgent care, hospital, or long-term...) When possible be specific @ -No Did you speak to anyone other than the patient for history (EMS, parent, family, police, friend...)? What history was obtained from this source @ -No Did you review nursing and triage notes (agree or disagree)? Why? @ -I reviewed and agree with nursing and triage notes Were old charts reviewed (outside hosp., previous admission, EMS record, old EKG, old radiological studies, urgent care reports/EKG's, long-term records)? Report findings @ -Old charts reviewed Differential Diagnosis (chest pain, altered mental status, abdominal pain women, abdominal pain men, vaginal bleeding, weakness, fever, dyspnea, syncope, headache, dizziness, GI bleed, back pain, seizure, CVA, palpatations, mental health, musculoskeletal)? @ -Differential Chest Pain: Stable Angina, Unstable Angina, STEMI, NSTEMI Aortic Dissection, Pneumothorax, Musculoskeletal, Esophageal Spasm GERD, Cholecystitis, Pancreatitis, Zoster, this is not meant to be an all-inclusive list. Differential Abdominal Pain Men: Appendicitis, cholecystitis, diverticulosis, ischemic bowel, pancreatitis, hepatitis, UTI, gastroenteritis, AAA, incarcerated hernia, bowel obstruction, constipation, inflammatory bowel, hepatitis, peptic ulcer disease, splenic infarction, perforated viscus, testicular torsion, this is not meant to be an all-inclusive list EKG interpreted by me (3pts min.). @ -As above X-rays interpreted by me (1pt min.). @ -None done CT interpreted by me (1pt min.). @ -CT angiogram of the chest, abdomen pelvis revealed no evidence of aortic catastrophe or injury. Patient has bilateral nonobstructing renal calculi. No other obvious acute finding. U/S interpreted by me (1pt. min.). @ -None done What testing was considered but not performed or refused? (CT, X-rays, U/S, labs)? Why? @ -None What meds were considered but not given or refused? Why? @ -None Did you discuss the management of the patient with other professionals (professionals i.e. DrDonell, PA, ADVERTISING TRAFFIC MANAGER, lab, RT, psych nurse, manager social responsibility, sr. pricing analyst, teacher, youth corrections officer, medical case manager)? Give summary @ -No Was smoking cessation discussed for >3mins.? @ -No Was critical care preformed (if so, how long)? @ -No Were there social determinants of health that impacted care today? How? (Homelessness, low income, unemployed, alcoholism, drug addiction, transportation, low edu. Level, literacy, decrease access to med. care, [facility] [facility], rehab)? @ -No Was there de-escalation of care discussed even if they declined (Discuss DNR or withdrawal of care, Hospice)? DNR status @ -No What co-morbidities impacted this encounter? (DM, HTN, Smoking, COPD, CAD, Cancer, CVA, ARF, Chemo, Hep., AIDS, mental health diagnosis, sleep apnea, morbid obesity)? @ -CABG, kidney stones Was patient admitted / discharged? Hospital course, mention meds given and route, prescriptions, significant lab abnormalities, going to OR and other pertinent info. @ -Based on patient's presentation and physical exam, presents emergency department complaining of somewhat atypical chest pain abdominal pain. States he had it while in the waiting room last however he is feeling improved at this time. Did involve his back as well as lower abdomen as well as chest. Currently asymptomatic. I did offer analgesia medications which were declined. Will provide a 1 L fluid bolus. Vital signs are within acceptable limits. He was in agreement this plan. EKG shows no signs of acute ischemia. Patient's laboratory studies are unremarkable including an undetectable troponin. Urinalysis shows trace blood. I did recommend CT imaging to rule out aortic dissection or injury and he was in agreement this plan. CT imaging shows no obvious acute process of the aorta. No evidence of complicated kidney stones. Has nonobstructing stones bilaterally. No other acute process found to explain his symptoms. On reevaluation, patient remains asymptomatic. I discussed results with him. I did offer observation admission however he instead elects to obtain a second troponin. He would like to go home if possible. I believe this is reasonable as he has been asymptomatic his entire stay. We will obtain a 3-hour troponin. Troponin is undetectable. On reevaluation he remains asymptomatic and wants to like to go home. He will be discharged home at this time with strict return precautions. He was in agreement this plan. I instructed the patient to follow up with their PCP in the next 1-3 days. I explained that the patient should return to the emergency department if they experience any worsening symptoms. Strict return precautions were discussed with the patient. The patient expressed understanding of these instructions. I answered all questions that the patient had. The patient was discharged home in good condition with their prescriptions and follow up information. Undiagnosed new problem with uncertain prognosis? @ -No Drug Therapy requiring intensive monitoring for toxicity (Heparin, Nitro, Insulin, Cardizem)? @ -No Were any procedures done? @ -No Diagnosis/symptom? @ -Atypical chest pain, abdominal pain of unknown etiology Acute, or Chronic, or Acute on Chronic? @ -Acute Uncomplicated (without systemic symptoms) or Complicated (systemic symptoms)? @ -Uncomplicated Side effects of treatment? @ -No Exacerbation, Progression, or Severe Exacerbation? @ -No Poses a threat to life or bodily function? How? (Chest pain, USA, GA, pneumonia, PE, COPD, DKA, ARF, appy, cholecystitis, CVA, Diverticulitis, Homicidal, Suicidal, threat to staff... and all critical care pts) @ -Unlikely - Lab Data Result diagrams: 05/24/23 14:57 05/24/23 14:57 Lab Results 05/24/23 05/24/23 05/24/23 Range/Units 14:57 14:57 14:57 WBC 11.2 H (3.8-10.6) k/uL RBC 4.97 (4.30-5.90) m/uL Hgb 15.9 (13.0-17.5) gm/dL Hct 49.0 (39.0-53.0) % MCV 98.6 (80.0-100.0) fL MCH 32.0 (25.0-35.0) pg MCHC 32.5 (31.0-37.0) g/dL RDW 12.7 (11.5-15.5) % Plt Count 164 (150-450) k/uL MPV 8.4 Neutrophils % 85 % Lymphocytes % 11 % Monocytes % 3 % Eosinophils % 0 % Basophils % 0 % Neutrophils # 9.5 H (1.3-7.7) k/uL Lymphocytes # 1.2 (1.0-4.8) k/uL Monocytes # 0.3 (0-1.0) k/uL Eosinophils # 0.0 (0-0.7) k/uL Basophils # 0.0 (0-0.2) k/uL PT 12.7 H (10.0-12.5) sec INR 1.2 H (<1.2) APTT 35.8 H (22.0-30.0) sec Sodium (137-145) mmol/L Potassium (3.5-5.1) mmol/L Chloride (98-107) mmol/L Carbon Dioxide (22-30) mmol/L Anion Gap mmol/L BUN (9-20) mg/dL Creatinine (0.66-1.25) mg/dL Est GFR (CKD-EPI)AfAm (>60 ml/min/1.73 sqM) Est GFR (CKD-EPI)NonAf (>60 ml/min/1.73 sqM) Glucose (74-99) mg/dL Calcium (8.4-10.2) mg/dL Magnesium (1.6-2.3) mg/dL Total Bilirubin (0.2-1.3) mg/dL AST (17-59) U/L ALT (4-49) U/L Alkaline Phosphatase (38-126) U/L Troponin I (0.000-0.034) ng/mL NT-Pro-B Natriuret Pep pg/mL Total Protein (6.3-8.2) g/dL Albumin (3.5-5.0) g/dL Lipase (23-300) U/L Urine Color Light Yellow Urine Appearance Clear (Clear) Urine pH 5.5 (5.0-8.0) Ur Specific Clayton 1.015 (1.001-1.035) Urine Protein Trace H (Negative) Urine Glucose (UA) Negative (Negative) Urine Ketones 1+ H (Negative) Urine Blood Trace H (Negative) Urine Nitrite Negative (Negative) Urine Bilirubin Negative (Negative) Urine Urobilinogen <2.0 (<2.0) mg/dL Ur Leukocyte Esterase Negative (Negative) Urine RBC 2 (0-5) /hpf Urine WBC 1 (0-5) /hpf Hyaline Casts 1 (0-2) /lpf Urine Mucus Rare H (None) /hpf 05/24/23 05/24/23 05/24/23 Range/Units 14:57 14:57 17:00 WBC (3.8-10.6) k/uL RBC (4.30-5.90) m/uL Hgb (13.0-17.5) gm/dL Hct (39.0-53.0) % MCV (80.0-100.0) fL MCH (25.0-35.0) pg MCHC (31.0-37.0) g/dL RDW (11.5-15.5) % Plt Count (150-450) k/uL MPV Neutrophils % % Lymphocytes % % Monocytes % % Eosinophils % % Basophils % % Neutrophils # (1.3-7.7) k/uL Lymphocytes # (1.0-4.8) k/uL Monocytes # (0-1.0) k/uL Eosinophils # (0-0.7) k/uL Basophils # (0-0.2) k/uL PT (10.0-12.5) sec INR (<1.2) APTT (22.0-30.0) sec Sodium 141 (137-145) mmol/L Potassium 4.5 (3.5-5.1) mmol/L Chloride 103 (98-107) mmol/L Carbon Dioxide 25 (22-30) mmol/L Anion Gap 13 mmol/L BUN 20 (9-20) mg/dL Creatinine 0.87 (0.66-1.25) mg/dL Est GFR (CKD-EPI)AfAm >90 (>60 ml/min/1.73 sqM) Est GFR (CKD-EPI)NonAf 82 (>60 ml/min/1.73 sqM) Glucose 105 H (74-99) mg/dL Calcium 9.9 (8.4-10.2) mg/dL Magnesium 1.9 (1.6-2.3) mg/dL Total Bilirubin 1.1 (0.2-1.3) mg/dL AST 40 (17-59) U/L ALT 34 (4-49) U/L Alkaline Phosphatase 57 (38-126) U/L Troponin I <0.012 <0.012 (0.000-0.034) ng/mL NT-Pro-B Natriuret Pep 65 pg/mL Total Protein 7.9 (6.3-8.2) g/dL Albumin 5.0 (3.5-5.0) g/dL Lipase 48 (23-300) U/L Urine Color Urine Appearance (Clear) Urine pH (5.0-8.0) Ur Specific Clayton (1.001-1.035) Urine Protein (Negative) Urine Glucose (UA) (Negative) Urine Ketones (Negative) Urine Blood (Negative) Urine Nitrite (Negative) Urine Bilirubin (Negative) Urine Urobilinogen (<2.0) mg/dL Ur Leukocyte Esterase (Negative) Urine RBC (0-5) /hpf Urine WBC (0-5) /hpf Hyaline Casts (0-2) /lpf Urine Mucus (None) /hpf - EKG Data -: EKG Interpreted by Me EKG Comments: 12-lead Electrocardiogram Interpretation Note EKG was reviewed and interpreted by myself. 12-lead ECG performed at 1328 is interpreted by me as revealing normal sinus rhythm at a rate of 64 beats per minute. Right axis deviation. AK interval is 288 ms, QRS durations 148 ms, QTc is 447 ms.. There were no ST or T wave abnormalities to suggest myocardial ischemia or injury. R wave progression across the precordium was satisfactory. By my interpretation this EKG is non-diagnostic for acute ischemia. Disposition Clinical Impression: Atypical chest pain, Abdominal pain of unknown etiology Disposition: HOME SELF-CARE Condition: Good Instructions (If sedation given, give patient instructions): Chest Pain (ED), Abdominal Pain (ED) Is patient prescribed a controlled substance at d/c from ED?: No Referrals: Stone Hunter DO [Primary Care Provider] - 1-2 days Time of Disposition: 17:46
[2023-05-24 18:07] VITALS: BP 117/76; PULSE 57; TEMP 97.6
== END 2023-05-24 17:59 | disposition home or self-care (01) ==
LOC: EC 13:09
DX: K44.9 Diaphragmatic hernia without obstruction or gangrene (principal); K57.30 Diverticulosis of large intestine without perforation or abscess without bleeding; K76.0 Fatty (change of) liver, not elsewhere classified; R07.89 Other chest pain; N20.0 Calculus of kidney; E78.5 Hyperlipidemia, unspecified; I10 Essential (primary) hypertension; M19.90 Unspecified osteoarthritis, unspecified site; E07.9 Disorder of thyroid, unspecified; Z79.01 Long term (current) use of anticoagulants; Z79.890 Hormone replacement therapy; Z79.899 Other long term (current) drug therapy; Z88.0 Allergy status to penicillin; Z88.1 Allergy status to other antibiotic agents; Z88.8 Allergy status to other drugs, medicaments and biological substances; Z95.1 Presence of aortocoronary bypass graft; Z91.011 Allergy to milk products; Z91.018 Allergy to other foods
CPT/HCPCS: 36415; 83880; 80053; 83690; 83735; 84484; 85025; 85610; 85730; 81001; 71275; 74174; 99285; 96360; Q9967